=== PATIENT | male | born 1990 | race Two or more races ===

== ENCOUNTER 2023-07-28 09:23 | Emergency (ER) | payer SELFPAY ==
[2023-07-28 10:26] VITALS: BP 113/86; PULSE 72; RESP 17; TEMP 36.3; O2SAT 99; BMI 28.7
--- NOTE | 2023-07-28 11:15 | ED.WOUNDLAC ---
HPI - Wound/Laceration General Chief Complaint: Wound/Laceration Stated Complaint: l inderx laceration Time Seen by Provider: 07/28/23 11:01 Source: patient Mode of arrival: ambulatory Limitations: no limitations History of Present Illness HPI narrative: Patient is a 32-year-old right hand dominant male presenting to the ED with complaint of laceration to left index finger. States he was using a knife at home around 10pm last night and cut himself accidentally. Denies numbness or tingling, decreased range of motion. States last Tdap was 2 years ago. Onset (ago): hour(s) Extremity Location: left: hand (index finger) Place: home Patient tetanus UTD: Yes Context: accidental Associated symptoms: pain Treatments prior to arrival: bandage Related Data Allergies Allergy/AdvReac Type Severity Reaction Status Date / Time No Known Allergies Allergy Unverified 04/26/20 18:35 Review of Systems Review of Systems: As per HPI. Yes all other systems are reviewed and are negative Constitutional: Constitutional: Reports as per HPI [facility] Social History Social History Advance Directives: No Advance Directives Information Provided: No Physical Exam Vital Signs: Vital Signs: Last Vital Signs Temp 97.4 F 07/28/23 10:26 Pulse 72 07/28/23 10:26 Resp 17 07/28/23 10:26 BP 113/86 07/28/23 10:26 Pulse Ox 99 07/28/23 10:26 O2 Del Method Room Air 07/28/23 10:26 BMI result Body Mass Index 28.7 Vital signs have been reviewed and appear to be correct. Blood pressure normal. Heart rate normal. Respiratory rate normal. Temperature normal. Oxygen saturation normal. Const: General: cooperative, healthy appearing and no acute distress Orientation/consciousness: oriented to person, oriented to place, oriented to time and patient oriented x3 Limitations: no limitations HEENT: Head: Yes normocephalic and Yes atraumatic Ears: external ears normal General nose exam: Normal external nose present Face and sinus: Yes face symmetric Mouth: oropharynx normal and moist mucous membranes Throat: Yes uvula midline Eyes: Pupils: Equal, round and reactive pupils present Neck: Neck: Yes normal visual inspection and Yes supple Resp: Effort & Inspection: normal respiratory effort and able to speak in complete sentences Auscultation: clear to auscultation bilaterally Cardio: Rate: regular rate Rhythm: regular rhythm Heart sounds: S1 normal heart sound present and S2 normal heart sound present GI: Palpation (GI): Soft to palpation and nontender Auscultation: normoactive bowel sounds : General: Yes no CVA tenderness Back/Spine/Pelvis: Back: no CVA tenderness Skin: General skin exam: elasticity normal and turgor normal Neuro: General: oriented to person, oriented to place, oriented to time, patient oriented x3, moves all extremities, no focal motor deficits and CN's II-XI intact bilaterally Cranial nerves: Yes Equal, round and reactive pupils present Cognition (Neuro): normal cognition Extrem: General: Yes full ROM, Yes no pedal edema and Yes no calf tenderness Left upper extremity: hand Details: laceration (radial aspect of PIP joint) 2nd digit dorsal aspect mid Details: flap, superficial, with motor nerve function intact and with sensation intact; not actively bleeding Psych: Mental Status: mental status grossly normal Affect: normal affect Thought process: Normal thought process present Medical Decision Making Medical Decision Making MDM Narrative: Patient is a 32-year-old right hand dominant male presenting to the ED with complaint of laceration to left index finger. On exam patient is awake, A+Ox3, VS WNL, afebrile, normal neurological exam without focal deficits, physical exam findings as above. Given reported symptoms and physical exam findings, initial differential includes laceration, cellulitis, tendon/nerve injury. Given that injury occurred at 10pm last night and patient has no active bleeding, cleansed wound thoroughly and dressed with bandage, applied splint with +CMS before and after application of splint. Tdap is up-to-date. Instructed patient to assess wound daily for signs of infection and follow up PCP or return if these occur. Instructed patient to keep the hand dry until wound is fully healed. Return precautions discussed. Patient verbalized understanding of and agreement with plan. Differential Diagnosis Differential Diagnoses: The differential diagnosis associated with the presentation includes As per MDM. External Record Review External record reviewed: Inpatient record, Office record and Outpatient record Discharge Plan Discharge Clinical Impression: Laceration Patient Disposition: Home, Self-Care Instructions: Finger Laceration (ED) Additional Instructions: You have been evaluated in the emergency department today for a laceration to your finger. Your laceration was cleaned and bandaged in the emergency department and a splint was applied to prevent you from bending your finger and reopening your laceration. Please keep the area surrounding the laceration clean and dry and keep dressing in place for the next 24 hours. After that please change the dressing and assess the wound daily. If you develop fever, redness, swelling at the site of your laceration, or thick yellow drainage please come back to the ER for a wound check.
--- NOTE | 2023-07-28 11:35 | MHC.EDTECH ---
pt was steri striped to L second finger, gauze wrapped, then splinted. 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
--- NOTE | 2023-07-28 12:02 | PC.NURSE ---
PROVIDER UNABLE TO CLOSE WOUND SECONDARY TO TIME FRAME OF INJURY, WOUND WAS CLEANED CLOSED WITH A STERI STRIP. DSD AND FINGER SPLIT TO IMMOBILIZE FOR HEALING
== END 2023-07-28 12:04 | disposition home or self-care (01) ==
PROVIDERS: Emergency Provider Emergency Medicine
DX: S61.211A Laceration without foreign body of left index finger without damage to nail, initial encounter (principal); W26.0XXA Contact with knife, initial encounter; Y93.9 Activity, unspecified; Y92.9 Unspecified place or not applicable; Y99.8 Other external cause status
CPT/HCPCS: 29130; 99282; 99284

== ENCOUNTER 2024-02-23 06:30 | Emergency (ER) | payer SELFPAY ==
--- NOTE | ~2024-02-23 | XR_ITS ---
EXAMINATION: XR HAND, RIGHT CLINICAL INFORMATION: Right hand trauma COMPARISON: None available. TECHNIQUE: PA, lateral, and oblique views of the right hand. FINDINGS: The bones and soft tissues are normal. No fracture. Alignment is anatomic. Joint spaces are maintained. No erosions or soft tissue calcifications. XR/XR hand RT min 3V IMPRESSION: Normal right hand.
[2024-02-23 06:37] VITALS: BP 135/77; PULSE 85; RESP 16; TEMP 36.7; O2SAT 97; BMI 30.3
[2024-02-23 06:40] VITALS: BP 135/77; PULSE 85; RESP 16; TEMP 36.8; O2SAT 97
--- NOTE | 2024-02-23 06:58 | PC.NURSE ---
report recieved by previous RN, patient resting comfortably on stretcher, states he is having some pain in his right wrist, states it has been ongoing for a while, feels like theres a bump in the joint, and it looks like it is more pronounced on this hand than the other . patient able to move thumb and hand, states there is some pain when he moves it and presses on the joint, no obvious deformity at this time. patient provided with ice pack for comfort, awaiting MD singh.
--- NOTE | 2024-02-23 07:23 | ED_ITS ---
HPI - Extremity Problem General Chief complaint: Extremity Injury, Upper Stated complaint: right hand pain Time Seen by Provider: 02/23/24 06:56 Source: patient Mode of arrival: ambulatory Limitations: no limitations History of Present Illness HPI Narrative: 33-year-old male presents emergency room complaining of pain to his right thumb. 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 At work he felt a pop in his thumb and has had intermittent pain also 1 week he will head another issue. He denies any fevers chills cough shortness of breath he denies nausea vomiting diarrhea denies any other injuries Related Data Allergies Allergy/AdvReac Type Severity Reaction Status Date / Time No Known Allergies Allergy Verified 02/23/24 06:39 Review of Systems Review of Systems: Review of systems: General: Patient denies any fever chills recent illness or falls Musculoskeletal: Denies back pain or body aches or other injuries HEENT: denies headache, runny nose, ear pain Respiratory: denies shortness of breath, cough Cardiovascular: no chest pain or palpitations : denies dysuria, frequency Abdomen: no nausea vomiting denies abdominal pain Extremities: right thumb pain Skin: no diaphoresis Yes all other systems are reviewed and are negative PMFSH Social History Social History Smoked in Last 30 Days: No Substance Use Type: Marijuana Advance Directives: No Advance Directives Information Provided: Yes Do you have a plan to hurt others: No Plan Physical Exam Vital Signs: Vital Signs: Last Vital Signs Temp 98.3 F 02/23/24 06:40 Pulse 85 02/23/24 06:40 Resp 16 02/23/24 06:40 BP 135/77 02/23/24 06:40 Pulse Ox 97 02/23/24 06:40 O2 Del Method Room Air 02/23/24 06:40 BMI result Body Mass Index 30.3 General: Well-appearing well-nourished in no signs of distress HEENT: Normocephalic atraumatic Neck: No signs of JVD, no masses no tenderness or lymphadenopathy Cardiovascular: Regular rate and rhythm Respiratory: Clear to auscultation bilaterally Abdomen: Soft nontender no masses Extremities: Normal pedal pulses no signs of edema no pain with palpation to thumb no pain to wrist anatomical snuffbox 5th metacarpal full range of motion and 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 Skin: Dry warm no rashes Back: No tenderness full ROM Course Course Course Narrative: XR okay given tylenol and ibuprofen. I will send home. Medications Administered Discontinued Medications Generic Name Dose Route Start Last Admin Trade Name Wendi PRN Reason Stop Dose Admin Acetaminophen 650 mg 02/23/24 07:26 02/23/24 07:31 Acetaminophen 325 Mg Tablet PO 02/23/24 07:27 650 mg ONCE ONE Administration Ibuprofen 400 mg 02/23/24 07:26 02/23/24 07:31 Ibuprofen 400 Mg Tablet PO 02/23/24 07:27 400 mg ONCE ONE Administration Medical Decision Making Medical Decision Making MDM Narrative: Actually done I think the patient would benefit from Tylenol ibuprofen ice a work note and follow-up with orthopedics Differential Diagnosis Differential Diagnoses: The differential diagnosis associated with the presentation includes More likely arthritis possible tendon injury to thumb Independent Interpretation I performed an independent interpretation of an: Plain X-Ray Radiology Impression Discussion of test interpretation with radiology: I have reviewed the radiologist's reading. External Record Review External record reviewed: Inpatient record and Office record Discharge Plan Discharge Clinical Impression: Finger sprain Patient Disposition: Home, Self-Care Instructions: Finger Sprain (ED) Additional Instructions: You seen today for her thumb. He had an x-ray done which was unremarkable. Please call follow about her hand with an orthopedic surgeon. Referrals: Igor Russ MD [Physician] - (You were seen today for them. He had an x-ray which was unremarkable. I do think this is most likely arthritis recommend ice rest and follow-up with the specialist) Stand Alone Forms: Work/School Release Print Language: Greek
[2024-02-23] MEDS: Acetaminophen 325 MG TABLET 650 MG PO (07:31)
[2024-02-23] MEDS: Ibuprofen 400 MG TABLET PO (07:31)
[2024-02-23 08:15] VITALS: BP 123/78; PULSE 75; RESP 13; TEMP 36.4; O2SAT 99
[2024-02-23 08:26] VITALS: BP 123/78; PULSE 75; RESP 13; TEMP 36.4; O2SAT 99
== END 2024-02-23 08:30 | disposition home or self-care (01) ==
PROVIDERS: Emergency Provider Student in an Organized Health Care Education/Training Program
DX: S63.601A Unspecified sprain of right thumb, initial encounter (principal); M79.641 Pain in right hand; X58.XXXA Exposure to other specified factors, initial encounter; Y33.XXXA Other specified events, undetermined intent, initial encounter; Y93.89 Activity, other specified; Y92.89 Other specified places as the place of occurrence of the external cause; Y99.0 Civilian activity done for income or pay
CPT/HCPCS: 73130; 99283; 99284

== ENCOUNTER 2024-03-06 20:16 | Emergency (ER) | payer MEDICAID, SELFPAY ==
[2024-03-06 20:20] VITALS: BP 151/100; PULSE 100; RESP 18; TEMP 36.3; O2SAT 97; BMI 30.2
[2024-03-06 20:29] VITALS: BP 141/89; PULSE 91
--- NOTE | 2024-03-06 20:36 | PC.NURSE ---
Pt reports ?abscess inside left nostril that erupted last . On Thursday pt developed left eye swelling. Pt is unsure if this an infection or an allergic reaction. Denies sob, tingling, or itching. Pending physician eval.
--- NOTE | 2024-03-06 21:31 | ED.ALLEREA ---
HPI - Allergic Reaction General Chief complaint: Allergic Reaction Stated complaint: facial swelling, pain Time Seen by Provider: 03/06/24 21:30 Source: patient Mode of arrival: ambulatory Limitations: no limitations History of Present Illness ED Provider: Dr. Rj Reaves HPI narrative: 33-year-old male with no significant past medical history who presents emergency department for evaluation of pain and swelling the side of the face. 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 He states that his hands were dirty and he had a pimple on the left side of his nose that he rubbed which then popped. He states that shortly after that he developed pain in his nose with increased swelling to the lateral aspect of his nose and face. He states that today the pain became more severe in his face became more swollen. He also states that he had subjective fever and chills. He denied any other symptoms. He applied ice with no relief his symptoms therefore came to emergency department for evaluation. Related Data Previous Rx's ?Medication ?Instructions ?Recorded cephalexin 500 mg capsule 500 mg PO QID 7 days #28 caps 03/06/24 doxycycline hyclate 100 mg tablet 100 mg PO Q12H 7 days #14 tabs 03/06/24 Allergies Allergy/AdvReac Type Severity Reaction Status Date / Time No Known Allergies Allergy Verified 03/06/24 20:23 Review of Systems Review of Systems: Yes all other systems are reviewed and are negative [facility] Social History Social History Smoked in Last 30 Days: No Use of substances other than those prescribed or required for medical reasons: No Substance Use Type: Marijuana Advance Directives: No Advance Directives Information Provided: Yes Physical Exam ED Vital Signs: Vital Signs - 24 hr 03/06/24 20:20 03/06/24 20:29 Temperature 97.3 F Pulse Rate 100 91 Respiratory Rate 18 Blood Pressure 151/100 H 141/89 H Pulse Oximetry 97 Oxygen Delivery Method Room Air BMI result Body Mass Index 30.2 Vital signs did reveal elevated heart rate of 100 elevated blood pressure of 151/100 Medical Decision Making Medical Decision Making MDM Narrative: 33-year-old male with no significant past medical history who presents emergency department for evaluation of pain and swelling the side of the face x3 days, started after the patient popped a pimple in his left nares. Pain is swelling to involve his left face to just under his eye, swallowing is painful patient had subjective fever and chills. Vital signs revealed an elevated blood pressure otherwise unremarkable. Physical examination is consistent with cellulitis the last side of the face with no abscess. Differential diagnosis: ?Includes but is not limited to left facial cellulitis, abscess, dental infection, dental abscess Patient was initially treated with the following: Doxycycline 100 mg orally, Keflex 500 mg orally Course: 21:55 Patient's physical examination is consistent with cellulitis left face most likely secondary to a pimple that popped in his left nares 3 days prior. Patient has no flocculence did not do not think that there is an abscess that needs to be drained at this time. Patient does not have any significant dental caries. Patient was started on Keflex 500 mg 4 times a day for 7 days and doxycycline 100 mg twice a day for 7 days. He was advised to take Tylenol and ibuprofen for his pain and fever. He was advised apply warm compress/heating pad to left side of his face for 15 minutes 6 times a day for the next 2-3 days. Patient did have an elevated blood pressure in the emergency department I did discuss diagnosis and treatment of hypertension and need for follow-up with primary care provider. Prescription Management I considered prescription management with: Antibiotic Discharge Plan Discharge Clinical Impression: Facial infection Patient Disposition: Home, Self-Care Additional Instructions: Cellulitis Discharge Instructions You have an infection of your skin of the left side of your face secondary to the pimple that you had in your nose. A skin infection is called cellulitis. This is usually caused by bacteria on your skin that gets under your skin and then causes the infection Take Keflex (cephalexin) 500 mg pills, 1 pill 4 times a day for 7 days Take doxycycline 100 mg pills, 1 pill every 12 hours for 7 days Make sure you complete both bottles of pills Keep the area of cellulitis elevated to help reduce swelling in the infected area and this helps with the healing process Also apply a heating pad on low or a warm compress for 15 minutes, 6 times a day for the next 2-3 days. This will increase the blood flow to the area and will bring white blood cells to the area which will help your body fight off the infection. Take Motrin(ibuprofen) 200mg pills, 2 pills every 6 hours as needed for pain or fever. Also take Tylenol( acetaminophen) 325 mg pills, 2 pills every 4 hours as needed for pain or fever. Signs of of worsening infection include fever, chills, weakness, increased pain, increased redness, increased swelling or red streaks going away from the area of infection, headache, nausea, vomiting If you develop any of these symptoms or any other symptoms that are concerning to you, see your doctor immediately or return to the Emergency Department. Follow up with your doctor in 3 days for a recheck Please read the other printed instructions that we printed for you. Your blood pressure was elevated today. This could be secondary to your pain and your infection and your face pain. When you are feeling better you need to get your blood pressure rechecked and if you continue to have high blood pressure readings then you may need to be seen by your PCP and started on medications or other treatments for high blood pressure. Blood pressure 151/100 Prescriptions: New cephalexin 500 mg capsule 500 mg PO QID 7 Days Qty: 28 0RF doxycycline hyclate 100 mg tablet 100 mg PO Q12H 7 Days Qty: 14 0RF Print Language: Belarusian
[2024-03-06 22:00] VITALS: BP 151/95; PULSE 99; RESP 16; TEMP 36.7; O2SAT 98
[2024-03-06] MEDS: cephALEXin 500 MG CAPSULE PO (22:02)
[2024-03-06] MEDS: Doxycycline Monohydrate 100 MG CAPSULE PO (22:02)
== END 2024-03-06 22:04 | disposition home or self-care (01) ==
PROVIDERS: Emergency Provider Emergency Medicine Emergency Medical Services
DX: L08.9 Local infection of the skin and subcutaneous tissue, unspecified (principal); L03.211 Cellulitis of face; R50.9 Fever, unspecified; R03.0 Elevated blood-pressure reading, without diagnosis of hypertension
CPT/HCPCS: 99283; 99284

== ENCOUNTER 2024-04-20 18:36 | Emergency (ER) | payer MEDICAID, SELFPAY ==
[2024-04-20 18:52] VITALS: BP 140/99; PULSE 100; RESP 16; TEMP 36.3; O2SAT 94; BMI 31.0
--- NOTE | 2024-04-20 18:52 | ED.GENADULT ---
HPI - General Adult General Chief complaint: Headache Stated complaint: migraine, swollen lip Time Seen by Provider: 04/20/24 20:06 History of Present Illness ED Provider: Virgen CASTANO narrative: The patient is a 33-year-old male who says that a couple of days ago he accidentally picked out a pimple near his lower lip in his subsequently developed a significantly swollen and painful lip. He says that he had left over cephalexin and doxycycline from a previous facial infection and he has taken the leftover pills over the last couple of days. He feels the lip is somewhat better than it was yesterday. Today he also had a migraine headache. He normally treats migraine headaches with sumatriptan but did not have any oral sumatriptan as he had run out. He has had no fever, sweats, chills. The patient was seen at triage and 6 mg of subcutaneous sumatriptan was ordered and administered prior to my evaluation. The patient says that his headache resolved after receiving the sumatriptan and he was headache free at the time that I examined him. Related Data Previous Rx's ?Medication ?Instructions ?Recorded cephalexin 500 mg capsule 500 mg PO QID 7 days #28 caps 03/06/24 doxycycline hyclate 100 mg tablet 100 mg PO Q12H 7 days #14 tabs 03/06/24 cephalexin 500 mg capsule 500 mg PO QID 10 days #40 caps 04/20/24 doxycycline monohydrate 100 mg 100 mg PO BID #20 caps 04/20/24 capsule sumatriptan succinate 50 mg tablet See Rx Instructions PO .COMPLEX 04/20/24 (Imitrex) #10 tabs Allergies Allergy/AdvReac Type Severity Reaction Status Date / Time No Known Allergies Allergy Verified 04/20/24 18:58 Review of Systems Review of Systems: Yes all other systems are reviewed and are negative PMFSH Social History Social History Substance Use Type: Marijuana Advance Directives: No Advance Directives Information Provided: Yes Physical Exam ED Vital Signs: Vital Signs - 24 hr 04/20/24 18:52 04/20/24 20:34 Temperature 97.4 F 97.4 F Pulse Rate 100 100 Respiratory Rate 16 16 Blood Pressure 140/99 H 140/99 H Pulse Oximetry 94 94 Oxygen Delivery Method Room Air Room Air BMI result Body Mass Index 31.0 Const Other: The patient is a healthy looking 33-year-old who was awake and alert and in no acute distress. His lower lip looks somewhat swollen. HENMT Other: The lower lip is swollen and tender. No fluctuance. Surrounding structures were unremarkable. No intraoral swelling. Eyes General: appearance normal, both eyes and all related structures Neck Neck: Yes no lymphadenopathy Resp Effort & Inspection: normal respiratory effort Skin Other: The skin around the lower lip was obscured by a very thick mccracken. Neuro Other: The patient is awake and alert with a normal mental status and a completely nontoxic demeanor. He seems obviously grossly neurologically intact. Course Course Course Narrative: This is an RME done by [facility] Ba: Additional HPI, ROS, PE not included below will be deferred to primary provider. 33-year-old male with a history of migraines presents with a 2 week history of migraines. States he usually takes sumatriptan but is out of this medication. Also states he is having symmetrical lower lip swelling sp popping a pimple . Appearance: Alert.? Oriented X3.? No acute cardiopulmonary distress distress.? Head: Normocephalic, atraumatic, no step-offs or deformities Lip: lower lip w/ symmetric edema Neck: Normal inspection.? Neck supple.? CVS: Pulses normal.? Respiratory: No respiratory distress.? Abdomen: Soft and nontender.? Skin: ? Normal skin color. Extremities: 5/5 strength to bilateral upper and lower extremities Back: No midline tenderness, no C-spine tenderness, full range of motion, No CVA tenderness bilaterally Neuro: Oriented X 3.? No motor deficit.? No sensory deficit. Medications Administered Discontinued Medications Generic Name Dose Route Start Last Admin Trade Name Wendi PRN Reason Stop Dose Admin Cephalexin HCl 1,000 mg 04/20/24 20:24 04/20/24 20:30 Cephalexin 500 Mg Capsule PO 04/20/24 20:25 1,000 mg ONCE ONE Administration Doxycycline Monohydrate 100 mg 04/20/24 20:24 04/20/24 20:30 Doxycycline Monohydrate 100 Mg Capsule PO 04/20/24 20:25 100 mg ONCE ONE Administration Sumatriptan Succinate 6 mg 04/20/24 18:53 04/20/24 19:04 Sumatriptan Succinate 6 Mg/0.5 Ml Vial SUBCUT 04/20/24 18:54 6 mg ONCE ONE Administration Medical Decision Making Medical Decision Making [facility] Narrative: The patient presented with 2 complaints. He presented complaining of a migraine headache and he also was here for evaluation of lower lip swelling. The patient has a history of migraines in his usually able to manage his migraines with sumatriptan but he had run out. He received 6 mg of subcutaneous sumatriptan prior to my evaluation with the resolution of his headache. The patient has a swollen and tender lower lip. It did not feel fluctuant. A bedside ultrasound revealed no fluid collection. The patient has a apparently been improving on some leftover cephalexin and doxycycline. I will prescribe both these medications for him to continue at home. I have also sent a prescription for oral sumatriptan as well. He should return if worse Discharge Plan Discharge Clinical Impression: Infection of lip, Migraine headache Patient Disposition: Home, Self-Care Additional Instructions: For the swelling of your lip please take the cephalexin and doxycycline as prescribed. Take the cephalexin 4 times a day, approximately every 6 hours. Take the doxycycline 2 times a day, approximately every 12 hours. You may also use warm compresses to your lip. This may help. I have also sent a prescription for sumatriptan tablets to your pharmacy which you may use as needed for migraines. Please work on getting a primary care doctor. Return to the emergency department if significantly worse. Prescriptions: New doxycycline monohydrate 100 mg capsule 100 mg PO BID Qty: 20 0RF cephalexin 500 mg capsule 500 mg PO QID 10 Days Qty: 40 0RF sumatriptan succinate [Imitrex] 50 mg tablet See Rx Instructions .ROUTE .COMPLEX Qty: 10 0RF Rx Instructions: take 1 tab at onset of headache; if no relief may repeat 1 tab after at least 2 hrs; max = 4 tabs/24 hr No Action cephalexin 500 mg capsule 500 mg PO QID 7 Days Qty: 28 0RF doxycycline hyclate 100 mg tablet 100 mg PO Q12H 7 Days Qty: 14 0RF Stand Alone Forms: Work/School Release Interventions: ED Discharge Assessment Last Done: 04/20/24 20:34 Discharge Date/Time: 04/20/24 20:34 Print Language: Japanese
[2024-04-20] MEDS: SUMAtriptan succinate 6 MG/0.5 ML VIAL SUBCUT (19:04)
[2024-04-20] MEDS: Doxycycline Monohydrate 100 MG CAPSULE PO (20:30)
[2024-04-20] MEDS: cephALEXin 500 MG CAPSULE 1000 MG PO (20:30)
[2024-04-20 20:34] VITALS: BP 140/99; PULSE 100; RESP 16; TEMP 36.3; O2SAT 94
== END 2024-04-20 20:34 | disposition home or self-care (01) ==
PROVIDERS: Emergency Provider Emergency Medicine
DX: K13.0 Diseases of lips (principal); G43.909 Migraine, unspecified, not intractable, without status migrainosus
CPT/HCPCS: 96372; 99283; 99284; J3030

== ENCOUNTER 2025-01-02 06:32 | Emergency (ER) | payer MEDICAID, SELFPAY ==
[2025-01-02 06:34] VITALS: BP 137/90; PULSE 85; RESP 16; TEMP 36; O2SAT 98; BMI 32.0
[2025-01-02 07:10] LABS: IDNOW Serial# 58CA691E; Strep A Nucleic Acid Negative (Negative)
--- NOTE | 2025-01-02 07:32 | ED_ITS ---
HPI - General Adult General Chief complaint: Upper Respiratory Symptoms Stated complaint: sore throat Time Seen by Provider: 01/02/25 07:04 Source: patient Mode of arrival: ambulatory Limitations: no limitations History of Present Illness ED Provider: DR. Avendaño HPI narrative: 34-year-old male came in for evaluation of 3 weeks of cough, sore throat, swollen tonsil, painful swallowing, no loss of weight, no change in voice. No fever, no chills, no other sick contacts, no recent travel. Related Data Previous Rx's ?Medication ?Instructions ?Recorded cephalexin 500 mg capsule 500 mg PO QID 7 days #28 caps 03/06/24 doxycycline hyclate 100 mg tablet 100 mg PO Q12H 7 days #14 tabs 03/06/24 cephalexin 500 mg capsule 500 mg PO QID 10 days #40 caps 04/20/24 doxycycline monohydrate 100 mg 100 mg PO BID #20 caps 04/20/24 capsule sumatriptan succinate 50 mg tablet See Rx Instructions PO .COMPLEX 04/20/24 (Imitrex) #10 tabs azithromycin 250 mg tablet See Rx Instructions PO .COMPLEX #6 01/02/25 (Zithromax Z-Elmer) tabs prednisone 20 mg tablet 20 mg PO BID #6 tabs 01/02/25 prednisone 20 mg tablet 20 mg PO BID #6 tabs 01/02/25 Allergies Allergy/AdvReac Type Severity Reaction Status Date / Time No Known Allergies Allergy Verified 01/02/25 06:39 Review of Systems Review of Systems: All other systems are reviewed and are negative Constitutional: Reports as per HPI and Reports no additional constitutional complaints Eyes: Reports as per HPI and Reports no additional eye complaints Reports system reviewed and no additional complaints, except as documented Cardiovascular: Reports as per HPI and Reports no additional cardiovascular complaints Respiratory: Reports as per HPI and Reports no additional respiratory complaints Gastrointestinal: Reports as per HPI and Reports no additional gastrointestinal complaints Genitourinary: Reports no additional female genitourinary complaints Musculoskeletal: Reports no additional musculoskeletal complaints Skin/Breast: Reports system reviewed and no additional complaints, except as docu Psychiatric: Reports no additional psychiatric complaints Endocrine: Reports no additional endocrine complaints Hematologic/Lymphatic: Reports no additional hematologic/lymphatic complaints Allergic/Immunologic: Reports no additional allergic/immunologic complaints Reports system reviewed and no additional complaints, except as documented and Reports Abnormal speech present PMFSH Social History Social History Substance Use Type: Marijuana Advance Directives: No Do you have a plan to hurt others: No Plan Physical Exam ED Vital Signs: Vital Signs - 24 hr 01/02/25 06:34 Temperature 96.8 F Pulse Rate 85 Respiratory Rate 16 Blood Pressure 137/90 H Pulse Oximetry 98 Oxygen Delivery Method Room Air BMI result Body Mass Index 32.0 Vital signs have been reviewed and appear to be correct. Blood pressure elevated. Heart rate normal. Respiratory rate normal. Temperature normal. Oxygen saturation normal. Appearance: Alert. Oriented X3. No acute distress. Head: Normal external exam. Normocephalic. Atraumatic. No Tariq signs noted. No raccoon eyes noted Eyes: PERRLA. EOMI. Conjunctiva and sclera normal. Eyelids normal. ENT: TM's Normal. Pharynx normal. Uvula midline. Moist mucous membranes. No trismus noted. No drooling noted. No muffled voice noted. Neck: Normal inspection. Neck supple. FROM. No adenopathy. Thyroid Normal. No meningeal signs. No neck mass noted. CVS: Normal heart rate and rhythm. Heart sound normal. No murmurs noted. Pulses normal throughout. Respiratory: No respiratory distress. Painless inspiration. Breath sounds normal. No wheezes/rales/rhonchi noted. Chest nontender. No accessory muscle usage noted or decreased air movement noted. Abdomen: Soft and nontender. Bowel sounds normal in all 4 quadrants. No distention noted. No organomegaly noted. No visible injury noted. Back: No CVA tenderness. Full range of motion noted. Skin: Skin warm and dry. Normal skin color. Normal skin turgor. No rashes/lesions/lacerations noted. Extremities: No lower extremity edema. Extremities exhibit normal range of motion. Extremities nontender. Neuro: Oriented X 3. Cranial nerve exam: II-XII are grossly intact No motor deficit. No sensory deficit. Reflexes normal. Course Reevaluation(s) Reevaluation #1: History of 3 weeks of sore throat, cough on and off. Patient is negative for strep pharyngitis and viral pharyngitis because the patient's symptoms x3 weeks will start the patient on Z-Elmer and short course of prednisone presuming this is bacterial pharyngitis. Time: 07:34 Medical Decision Making Differential Diagnosis Differential Diagnoses: The differential diagnosis associated with the presentation includes (Strep pharyngitis, COVID-19 infection, influenza a, RSV.) Admission/Observation Consideration of admission/observation: Escalation of care including admission/observation considered Lab Data MDM Lab Attestation statement: I reviewed the patient's lab results. Labs: Lab Results 01/02/25 Range/Units 06:52 S. pyogenes GrpA LUIS Negative (Negative) Discharge Plan Discharge Clinical Impression: Pharyngitis Patient Disposition: Home, Self-Care Instructions: Pharyngitis (ED) Prescriptions: New prednisone 20 mg tablet 20 mg PO BID Qty: 6 0RF azithromycin [Zithromax Z-Elmer] 250 mg tablet See Rx Instructions .ROUTE .COMPLEX Qty: 6 0RF Rx Instructions: For 250 mg dose pack: take 500 mg today (day 1), then 250 mg for 4 days (days 2-5) prednisone 20 mg tablet 20 mg PO BID Qty: 6 0RF No Action cephalexin 500 mg capsule 500 mg PO QID 7 Days Qty: 28 0RF doxycycline hyclate 100 mg tablet 100 mg PO Q12H 7 Days Qty: 14 0RF doxycycline monohydrate 100 mg capsule 100 mg PO BID Qty: 20 0RF cephalexin 500 mg capsule 500 mg PO QID 10 Days Qty: 40 0RF sumatriptan succinate [Imitrex] 50 mg tablet See Rx Instructions .ROUTE .COMPLEX Qty: 10 0RF Rx Instructions: take 1 tab at onset of headache; if no relief may repeat 1 tab after at least 2 hrs; max = 4 tabs/24 hr Referrals: [facility] [Primary Care Provider] - Print Language: Albanian
[2025-01-02 07:42] LABS: Influenza A PCR NEGATIVE (Negative); Influenza B PCR NEGATIVE (Negative); Resp Syncy Virus RNA Qual PCR NEGATIVE (Negative); SARS COV2 PCR INHOUSE NEGATIVE (Negative)
[2025-01-02 08:31] VITALS: BP 137/90; PULSE 85; RESP 16; TEMP 36; O2SAT 98
== END 2025-01-02 08:31 | disposition home or self-care (01) ==
PROVIDERS: Emergency Provider Emergency Medicine
DX: J02.9 Acute pharyngitis, unspecified (principal); R05.9 Cough, unspecified; Z03.818 Encounter for observation for suspected exposure to other biological agents ruled out; Z79.899 Other long term (current) drug therapy
CPT/HCPCS: 0241U; 87651; 99282; 99283